=== PATIENT | male | born 1930 | race Caucasian/White ===

== ENCOUNTER 2018-01-11 22:37 | Inpatient (IN) | payer OTHER, BC ==
[2018-01-11] MEDS ORDERED: NS 1,000 ML IV ONE (22:43)
--- NOTE | 2018-01-11 22:47 | EDPHY ---
H & P Time Seen by Provider: 01/11/18 22:44 HPI/ROS: HPI CHIEF COMPLAINT: weakness, presyncope, lightheadedness, shortness of breath, nausea, vomiting HISTORY OF PRESENT ILLNESS: 87-year-old male, history of coronary artery disease, CABG, presents emergency room after he has been feeling unwell today. He states today is been globally weak for the past 24 hr. He has had associated nausea and vomited 2 times. Additionally reports lightheadedness. He is walking this evening to go use the bathroom in his private residence with his and had a patient syncopal episode. He got very lightheaded and had to go to the ground. He did not have a complete LOC. He denies any chest pain. Does complain of some mild shortness of breath. Additionally a cough. Additionally nausea vomiting, and global generalized weakness. Denies headache or head strike. Denies focal weakness numbness or tingling. EMS reports he had a room air saturation of 83%. Past Medical History: Coronary artery disease Past Surgical History: CABG Social History: Denies current use of drugs alcohol tobacco. Family History: Noncontributory ROS REVIEW OF SYSTEMS: 10 Systems were reviewed and negative with the exception of the elements mentioned in the history of present illness. Exam Constitutional elderly, frail, triage nursing summary reviewed, vital signs reviewed, awake/alert. Eyes normal conjunctivae and sclera, EOMI, PERRLA. HENT normal inspection, atraumatic, moist mucus membranes, no epistaxis, neck supple/ no meningismus, no raccoon eyes. Respiratory decreased breath sounds bilaterally clear to auscultation bilaterally, normal breath sounds, no respiratory distress, no wheezing. Cardiovascular rate normal, regular rhythm, no murmur, no edema, distal pulses normal. Gastrointestinal soft, non-tender, no rebound, no guarding, normal bowel sounds, no distension, no pulsatile mass. Genitourinary no CVA tenderness. Musculoskeletal right lower extremity is mildly red and warm, ecchymosis over the right knee where he states he got hit by a softball, no midline vertebral tenderness, full range of motion, no calf swelling, no tenderness of extremities , no meningismus, good pulses, neurovascularly intact. Skin pink, warm, & dry, no rash, skin atraumatic. Neurologic awake, alert and oriented x 3, AAOx3, moves all 4 extremities equally, motor intact, sensory intact, CN II-XII intact, normal cerebellar, normal vision, normal speech. Psychiatric normal mood/affect. Heme/Lymph/Immune no lymphadenopathy. Differential diagnosis includes but is not limited to: Syncope, dehydration, infection, sepsis, pneumonia ACS, atypical chest pain, pneumothorax, pneumonia, pulmonary embolism, aortic dissection, congestive heart failure, tumor, musculoskeletal pain, esophageal pain, GERD, peptic ulcer disease, pancreatitis Medical Decision Making: Plan for this patient IV establishment IV fluid bolus , chest x-ray, blood work, lactic acid, blood cultures, EKG, troponin, CT head without contrast Re-evaluation: EKG interpretation by me on record in [employer] system. Impression time of EKG 2244, sinus rhythm rate of 85 there is a bright bundle-branch block present without any signs of acute ischemia. Similar to previous EKG. CT scan head without contrast negative for acute bleed. Called to me by Dr. Lott. Chest x-ray reviewed. Pneumonia present. Please see radiologist's dictation. Blood cultures have been pulled. I have given him IV Levaquin 750 mg. Blood work is reviewed note evaluated white blood cell count, noted elevated lactic acid but trending down. No evidence of hypotension, tachycardia or fever. Given this 87-year-old complains of cough, generalized weakness, syncope, lightheadedness patient be admitted the hospital for pneumonia IV Levaquin. Source: Patient, EMS - Personal History Tetanus Vaccine Date: 2011 - Medical/Surgical History Hx Asthma: No Hx Chronic Respiratory Disease: No Hx Diabetes: No Hx Cardiac Disease: Yes Hx Renal Disease: No Hx Cirrhosis: No Hx Alcoholism: No Hx HIV/AIDS: No Hx Splenectomy or Spleen Trauma: No Other PMH: interstitial cystitis, GERD, gout, HTN, Hyperlipidemia, macular degeneration. bypass x 2 (1988 double and 1998 quadruple; stent in 2010. SDH 2011, tonsillectomy, prostate procedure, ortho surg: RT rotator cuff in 2007 - Social History Smoking Status: Never smoked Constitutional: Initial Vital Signs O2 Sat (%) 92 01/11/18 22:43 O2 Delivery Mode Nasal Cannula O2 (L/minute) 3 Allergies/Adverse Reactions: Penicillins Allergy (Mild, Verified 01/11/18 22:44) Rash bees Allergy (Severe, Uncoded 01/11/18 22:44) Anaphylaxis Home Medications: Medication Instructions Recorded Allopurinol [Allopurinol 300 MG 300 mg PO DAILY 01/12/18 (RX)] Amitriptyline HCl [Elavil 100 MG 100 mg PO HS 01/12/18 (*)] Aspirin EC [Aspirin EC 81 mg (*)] 81 mg PO DAILY 01/12/18 Atenolol [Tenormin 25 mg (*)] 12.5 mg PO DAILY 01/12/18 Cholecalciferol Vit D3 [Vitamin D3 1,000 units PO HS 01/12/18 (*)] Esomeprazole Mag Trihydrate 40 mg PO DAILY 01/12/18 [Nexium] Finasteride [Proscar 5 MG (*)] 5 mg PO HS 01/12/18 Folic Acid [Folic Acid 1 MG (*)] 1 mg PO BID 01/12/18 Herbals/Supplements -Info Only 1 ea PO DAILY 01/12/18 Magnesium Oxide [Magnesium Oxide 400 mg PO HS 01/12/18 400 mg (*)] Multivitamins [Multivitamin (*)] 1 each PO DAILY 01/12/18 [place]-3 Fatty Acids [Fish Oil 1000 1,000 mg PO DAILY 01/12/18 mg (*)] Pregabalin [Lyrica 100mg (*)] 100 mg PO TID 01/12/18 Rosuvastatin Calcium [Crestor 40mg 40 mg PO HS 01/12/18 (*)] Tamsulosin HCl [Flomax 0.4 MG (*)] 0.4 mg PO DAILY 01/12/18 Vit C/Dl-E AC/Lut/Copper/Znox 1 each PO BID 01/12/18 [Preservision Softgel] metFORMIN HCL [Glucophage 500 mg 500 mg PO BIDMEAL 01/12/18 (*)] oxyCODONE/APAP 5/325 [Percocet 1 - 2 tab PO Q4H PRN 01/12/18 5/325 (*)] tiZANidine HCL [Zanaflex] 4 mg PO TID 01/12/18 Medical Decision Making - Data Points Laboratory Results: Laboratory Results 01/11/18 22:40 01/11/18 22:40 Microbiology Results: MICROBIOLOGY 01/11/18 23:10 Blood Blood Culture - Preliminary 01/11/18 23:00 Blood Blood Culture - Preliminary Medications Given: Allopurinol (Allopurinol) 300 mg PO DAILY [facility] Stop: 07/12/18 08:59 Last Admin: 01/13/18 08:58 Dose: 300 mg Amitriptyline HCl (Elavil) 100 mg PO HS [facility] Stop: 07/11/18 20:59 Last Admin: 01/13/18 21:14 Dose: 100 mg Aspirin Buffered (Aspirin Ec) 81 mg PO DAILY [facility] Stop: 07/11/18 12:44 Last Admin: 01/13/18 08:58 Dose: 81 mg Atenolol (Tenormin) 12.5 mg PO DAILY [facility] Stop: 07/11/18 12:44 Last Admin: 01/13/18 08:58 Dose: 12.5 mg Cholecalciferol (Vitamin D) 1,000 units PO HS [facility] Stop: 07/11/18 20:59 Last Admin: 01/13/18 21:14 Dose: 1,000 units Enoxaparin Sodium (Lovenox) 40 mg SC DAILY [facility] Stop: 07/11/18 08:59 Last Admin: 01/13/18 08:59 Dose: 40 mg Finasteride (Proscar) 5 mg PO HS [facility] Stop: 07/11/18 20:59 Last Admin: 01/13/18 21:25 Dose: 5 mg Fluticasone Propionate (Flonase Nasal Stanley) 1 sprays EACHNARE DAILY [facility] Stop: 07/11/18 11:44 Last Admin: 01/13/18 09:07 Dose: 1 spray Folic Acid (Folic Acid) 1 mg PO BID [facility] Stop: 07/11/18 20:59 Last Admin: 01/13/18 21:15 Dose: 1 mg Sodium Chloride (Ns) 1,000 mls @ 75 mls/hr IV CONT [facility] Stop: 07/11/18 00:59 Last Admin: 01/13/18 21:14 Dose: 1,000 mls Levofloxacin (Levaquin) 750 mg PO DAILY10 [facility] Stop: 02/12/18 09:59 Last Admin: 01/13/18 10:30 Dose: 750 mg Magnesium Oxide (Magnesium Oxide) 400 mg PO HS [facility] Stop: 07/11/18 20:59 Last Admin: 01/13/18 21:15 Dose: 400 mg Metformin HCl (Glucophage) 500 mg PO BIDMEAL [facility] Stop: 07/11/18 17:59 Last Admin: 01/13/18 18:00 Dose: 500 mg Multivitamins (Tab-A-Marysol) 1 each PO DAILY [facility] Stop: 07/12/18 08:59 Last Admin: 01/13/18 08:59 Dose: 1 each Multivitamins/Minerals (Preservision Areds2 Formula) 1 each PO BID [facility] Stop: 07/11/18 20:59 Last Admin: 01/13/18 21:15 Dose: 1 each Inabf-0-Toej Ethyl Esters (Fish Oil) 1,000 mg PO DAILY [facility] Stop: 07/12/18 08:59 Last Admin: 01/13/18 08:58 Dose: 1,000 mg Pantoprazole Sodium (Protonix) 40 mg PO DAILY [facility] Stop: 07/11/18 13:44 Last Admin: 01/13/18 08:58 Dose: 40 mg Pregabalin (Lyrica) 100 mg PO TID [facility] Stop: 07/11/18 15:59 Last Admin: 01/13/18 21:15 Dose: 100 mg Rosuvastatin Calcium (Crestor) 40 mg PO HS [facility] Stop: 07/11/18 20:59 Last Admin: 01/13/18 21:14 Dose: 40 mg Tamsulosin HCl (Flomax) 0.4 mg PO DAILY [facility] Stop: 07/12/18 08:59 Last Admin: 01/13/18 08:58 Dose: 0.4 mg Tizanidine HCl (Zanaflex) 4 mg PO TID [facility] Stop: 07/11/18 15:59 Last Admin: 01/13/18 21:15 Dose: 4 mg Discontinued Medications Sodium Chloride (Ns) 1,000 mls @ 0 mls/hr IV EDNOW ONE; Wide Open PRN Reason: Protocol Stop: 01/11/18 22:44 Last Admin: 01/11/18 22:58 Dose: 1,000 mls Levofloxacin/Dextrose (Levaquin 750 Mg (Premix)) 150 mls @ 100 mls/hr IV EDNOW ONE PRN Reason: Protocol Stop: 01/12/18 02:07 Last Admin: 01/12/18 00:43 Dose: 150 mls Sodium Chloride (Ns) 200 mls @ 200 mls/hr IV ONCE ONE Stop: 01/13/18 14:06 Last Admin: 01/13/18 13:15 Dose: 200 mls Lidocaine HCl (Xylocaine-Mpf 1% Sdv) 20 ml NB ONCE ONE Stop: 01/14/18 03:01 Last Admin: 01/14/18 03:32 Dose: Not Given Point of Care Test Results: Chemistry 01/11/18 22:47 POC Troponin I 0.00 ng/mL ng/mL (0.00-0.08) Departure - Departure Disposition: [facility] [place] [facility] Acute Clinical Impression: Dehydration Syncope Qualifiers: Syncope type: unspecified Qualified Code(s): R55 - Syncope and collapse Pneumonia Qualifiers: Pneumonia type: due to unspecified organism Laterality: bilateral Lung location : lower lobe of lung Qualified Code(s): J18.1 - Lobar pneumonia, unspecified organism Condition: Fair
[2018-01-11 22:53] LABS: PLATELET COUNT 164 10^3/uL (150-400)
[2018-01-11 23:01] LABS: INR 1.11 (0.83-1.16); PROTIME(PATIENT) 14.5 SEC (12.0-15.0)
[2018-01-12] MEDS ORDERED: ACETAMINOPHEN 325 MG TAB PO PRN (00:57)
[2018-01-12] MEDS ORDERED: ONDANSETRON 4 MG/2 ML VIAL IVP PRN (00:57)
[2018-01-12] MEDS: NS 1,000 ML IV SCH ×2 (02:10→18:16)
--- NOTE | 2018-01-12 04:19 | GHP ---
DATE OF ADMISSION: 01/12/2018 SOURCE: Patient provides history, appears reliable. EMR was reviewed and case discussed with ED pro vider. CHIEF COMPLAINT: Generalized weakness, nausea, vomiting, shortness of breath. HISTORY OF PRESENT ILLNESS: This is a very pleasant 87-year-old gentleman with past medical history significant for HTN, HLD, CAD status post CABG 4 vessel x2 in 1988 and 1998, followed by stenting in 2010, BPH, interstitial cystitis, who presents to the emergency department today following a presynco pal episode. The patient reports that over the last several days, he has been having increasing gene ralized weakness and fatigue. Today, he had 2 episodes of nausea and vomiting. He has also been exp eriencing some lightheadedness as well as shortness of breath and coughing. The patient reports that he had his grandkids over for the past week and he has subsequently contracted cold-type symptoms wi th runny nose, sore throat and congestion, which have been slowly improving. The patient states toda y he was going to the bathroom when he became significantly lightheaded coming back. He did denies a ny loss of consciousness, but states that he was too weak to stand and helped himself down to the ameya or. The patient getting up states that he may have stumbled and possibly hit his head. He is not on any therapeutic anticoagulation, but he does take a daily baby aspirin. The patient denies any head ache. No numbness, tingling. No focal deficits, just generalized malaise and weakness. He does rep ort he has had fevers and chills over the last several days. He has been experiencing some myalgias as well. EMS was called and arrived noting that patient had an O2 saturation at 83% on room air on s cene. It did improve with supplemental oxygen. REVIEW OF SYSTEMS: Positive for fevers, chills. SKIN: No rashes or sores. EYES: Patient denies a ny acute changes in vision or ocular pain. ENT: Patient reports symptoms as noted per HPI. CV: No chest pain, palpitations. RESPIRATORY: Shortness of breath and nonproductive cough as noted above. : Patient with history of interstitial cystitis that has been relatively controlled with Lyrica and tizanidine. However, in the last several days, patient has reported some increasing dysuria with out any hematuria. GI: Patient with nausea, vomiting x2 as noted per HPI. No hematemesis. Denies any diarrhea. No melena or hematochezia. MUSCULOSKELETAL: Patient reports diffuse myalgias and gen eralized weakness as noted above. NEURO: Patient without any numbness, tingling, or focal weakness. He does report generalized weakness and unable to stand walking back from the bathroom as noted abo ve. Remainder of 10 point review of systems is negative except as noted above. ALLERGIES: To penicillin and bee stings. HOME MEDICATIONS: As available per EMR, tizanidine 4 mg p.o. t.i.d., Percocet 5/325 1-2 tabs p.o. q. 4 hours p.r.n., hydroxyzine 50 mg p.o. at HS, amlodipine 2.5 mg p.o. daily, PreserVision ARED tablet 1 tab p.o. twice daily, tamsulosin 0.4 mg p.o. daily, Crestor 40 mg p.o. daily in the evening, Lyrica 100 mg p.o. three times daily, fish oil 1000 mg p.o. daily, vitamin tab 1 tab p.o. daily, Citrucel 1 000 mg p.o. daily, magnesium oxide 400 mg p.o. at HS, folic acid 0.6 mg p.o. b.i.d., finasteride 5 mg p.o. at HS, Nexium 40 mg p.o. daily, vitamin D3 1000 units p.o. at HS, atenolol 12.5 mg p.o. daily, aspirin 81 mg p.o. daily, amitriptyline 25 mg p.o. at HS, allopurinol 300 mg p.o. daily. PAST MEDICAL HISTORY: HTN, HLD, CAD status post CABG x4 vessel in 1988, 1998, as well as cardiac cat h with stenting in 2010, BPH, gout, SDH in 2011, interstitial cystitis, right foot cellulitis, GERD, macular degeneration. PAST SURGICAL HISTORY: Tonsillectomy, adenoidectomy, prostate, CABG x2, cardiac cath with stents, ri ght rotator cuff repair. FAMILY HISTORY: Negative for CAD or lung disease. The patient reports his children are all healthy. SOCIAL HISTORY: Patient is , lives with his in a private home. He does not smoke or use any illicit drugs or marijuana. He drinks possibly 1 beer per week. CODE STATUS: Full. Patient's MD TITA is . PHYSICAL EXAM: VITAL SIGNS: Blood pressure 113/63, heart rate is 85, respiratory rate 18, O2 satura tion 92% on 3 L with a temperature 37.1. Current vitals available: Blood pressure is 107/65, heart rate is 84, respiratory rate 24, O2 saturation is 93% on 2 L by nasal cannula, temperature 37.4. GEN ERAL: No acute distress. Very pleasant, elderly, frail-appearing gentleman is lying quietly in bed. Does appear quite fatigued, acutely ill but nontoxic. HEAD: Normocephalic, atraumatic. EYES: Ex traocular muscles are intact. Pupils equal, round, react to light bilaterally and symmetric. No scl eral icterus, conjunctival injection. Lens reflexes appreciated bilaterally. ENT: Mucous membranes appear quite dry. Minimal amount of oropharyngeal erythema, but no exudates are appreciated. No na marisol discharge. Patient has nasal cannula in place. NECK: Supple. Trachea midline. CV: Regular r ate and rhythm. No murmurs, rubs, or gallops appreciated. RESPIRATORY: Unlabored breathing except when patient goes to sit up. He does have some minimal increased work of breathing temporarily. Dwayne g sounds diminished at the bases with occasional crackles bilaterally. No wheezes or rhonchi appreci ated. ABDOMEN: Obese, soft, nontender to palpation. No rebound, guarding, or masses appreciated. : No suprapubic tenderness to palpation. No Rudd catheter in place. EXTREMITIES: Patient with some trace pretibial pitting edema down to his feet. He has 1+ pedal pulses appreciated bilaterally and symmetric. MUSCULOSKELETAL: Overall, patient's strength is fair. He is able to sit up independ ently but does appear fatigued. Exam is limited at this time. NEURO: Grossly nonfocal. Moves all extremities. Strength 4-5 out of 5 in upper and lower extremities as noted above. PSYCH: Thought p rocess, content and questions are all appropriate. Patient is fatigued overall, but he is still plea nicole and very cooperative. LABORATORY STUDIES: WBC 14.97, H and H 14.0 and 41.5, MCV 91.2, platelet count is 164, neutrophil pe rcent 84.9%, no bands. PT is 14.5, INR is 1.11, PTT is 28.6. VBG lactic acid initially is 2.2, repe ated is 2.0. Sodium is 137, potassium 4.4, chloride 100, CO2 25, anion gap 12, BUN 26, creatinine is 1.2, GFR 58, glucose is 131, calcium 9.4, magnesium 1.8, total bilirubin 0.5, ALT is 29, AST is 22, alkaline phosphatase is 99. Troponin is negative. BTNP is 171. Total protein 6.3, albumin 3.8, lip ase is 35. Chest x-ray: Image and report reviewed. Mild bronchitis, mild atelectasis versus scarring versus ea rly infiltrates both lung bases. CT head without contrast: Image and report were reviewed. Negativ e for any evidence acute intracranial abnormality. Acute on chronic sinus related change in both fro ntal sinuses and left maxillary sinus. Mucous membrane thickening in the paranasal sinuses as well. EKG was reviewed myself showing normal sinus rhythm in the 80s with a right bundle branch block. QTc 468. ASSESSMENT/PLAN: Pleasant 87-year-old gentleman with significant cardiac history, who [facility] today with complaints of generalized weakness, shortness of breath, nausea, vo miting, lightheadedness. 1. Bilateral pneumonia. The patient had preceding viral type symptoms and positive sick contacts. He has been started on Levaquin which will continue. The patient also with some noted hypoxia and re quiring supplemental oxygen. 2. Hypoxia due to above. Continue to titrate down O2 to maintain sats greater than 90. Antibiotics as noted above. Incentive spirometry. 3. Presyncope. Likely related to patient's hypoxia and/or possibly orthostasis given patient does a ppear dehydrated. Patient's blood pressures have been adequate at this time and his O2 level has imp roved with supplementation. Will monitor patient closely and fall precautions will be in place. 4. Leukocytosis with elevated lactate and some minimal acute kidney injury, qualifying patient for s epsis, but rapidly improving with IV fluids and antibiotics. Will continue to trend lactate to less than 2.0. Antibiotics as noted above. Blood cultures are pending x2. 5. Dysuria. Patient with history of interstitial cystitis, but he reports abrupt change in symptoms recently that were previously well controlled. Will obtain a urinalysis to verify that there is no evidence of urinary tract infection. 6. Generalized weakness. IV fluids, antibiotics, oxygen supplementation as noted above. PT/OT cons ultation. 7. Hyperglycemia. No previous history of diabetes. This is nonfasting, so will plan to monitor and will allow for some permissive hyperglycemia as patient does not have a history of diabetes previous ly. CHRONIC MEDICAL ISSUES: 1. Coronary artery disease without any known history of chest pain. Resume patient's statin therapy and antihypertensives. 2. Hyperlipidemia. Patient will continue statin. 3. Benign essential hypertension. Continue patient's amlodipine, atenolol. 4. Benign prostatic hypertrophy. Continue patient's Flomax and finasteride. 5. Interstitial cystitis. Plan as noted above and then resume patient's Lyrica and tizanidine. 6. Gout. Continue allopurinol. 7. Macular degeneration. Resume patient's supplementation if he should stay additional days. 8. Fluid, electrolyte, nutrition. Will give patient some supplemental oxygen. He denies any histor y of congestive heart failure based on his previous echocardiogram. Patient does have some lower ext remity edema, but no signs or symptoms of congestive heart failure at this time. Will monitor patien t's fluid status closely, but does currently appeared quite dehydrated. 9. Electrolytes are adequate and do not require replacement. A cardiac diet ordered. 10. Prophylaxis. Sequential compression devices and Lovenox if patient should stay additional day. 11. Code status is full. Patient's is MD RIVERS. 12. Disposition. Patient admitted to observation status on the medical floor at this time pending r eassessment of his oxygen needs in the morning and overall stability. /[id number]/MODL
[2018-01-12] MEDS: ENOXAPARIN 40 MG/0.4 ML SYR SC SCH (10:42)
--- NOTE | 2018-01-12 10:44 | HOSPPROG ---
Hospitalist Progress Note Assessment/Plan: Mr Jiménez is an 87-year-old gentleman who presents to the emergency department with complaints of generalized weakness, shortness of breath, nausea, vomiting , lightheadedness. An x ray was performed which showed a bilateral pna. Today is my first encounter w the patient, chart reviewed. *pna/ cap -levaquin -blood cx pending *hypoxia -due to this *presyncope -no c/o of this *leukocytosis w elevated lactate due to the above *Generalized weakness -PT and OT to see *hyperglycemia *CAD -statin, beta linda -hx of CABG twice *dysuria -hx of interstitial cystitis *Plan: will re-evaluate later today, recheck cbc Subjective: Dixon said he is feeling much better today. Objective: Vital Signs Temp Pulse Resp BP Pulse Ox 37.2 C 69 18 120/65 94 01/12/18 08:00 01/12/18 08:00 01/12/18 08:00 01/12/18 08:00 01/12/18 08:00 Laboratory Results 01/12/18 04:43 01/11/18 01/12/18 01/13/18 05:59 05:59 05:59 Intake Total 100 Output Total 350 Balance -250 PT 14.5 SEC (12.0-15.0) 01/11/18 22:40 INR 1.11 (0.83-1.16) 01/11/18 22:40 - Physical Exam Constitutional: no apparent distress, appears nourished, not in pain Eyes: PERRL Ears, Nose, Mouth, Throat: hearing normal Cardiovascular: regular rate and rhythym Respiratory: no respiratory distress, reduced air movement Gastrointestinal: normoactive bowel sounds Skin: warm Musculoskeletal: full muscle strength Neurologic: AAOx3 Psychiatric: interacting appropriately ICD10 Worksheet Patient Problems: Problems Problem Status Onset Dehydration Acute Pneumonia Acute Syncope 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
--- NOTE | 2018-01-12 11:06 | CPEKG ---
Test Reason : OPEN Blood Pressure : / mmHG Vent. Rate : 085 BPM Atrial Rate : 086 BPM P-R Int : 186 ms QRS Dur : 171 ms QT Int : 393 ms P-R-T Axes : 033 267 029 degrees QTc Int : 468 ms Sinus rhythm Right bundle branch block Confirmed by Antonio Arias ([id number]) on 01/12/2018 11:05:50 AM Referred By: Confirmed By:Antonio Arias
[2018-01-12] MEDS: FLUTICASONE NASAL 120 SPRAYS/16 GM MDI EACHNARE SCH (12:56)
[2018-01-12 13:13] LABS: PLATELET COUNT 142 10^3/uL (150-400)
--- NOTE | 2018-01-12 13:57 | ASMTCMCOM ---
CM Note CM Note Notes: Case Management Chart Review for Discharge Support: Patient is a 87 y/o male with weakness/not feeling well with history of coronary artery disease, CABG, admitted under observation via [facility] for pneumonia. CM met with patient when it seemed he was to be discharged, he will stay another night for monitoring (elevated respiratory rate). He states his will be support at home and will be here to transport him. Patient declines any CM needs. Patient states he will try to schedule a follow up with Primary Care( Dr. Seals) within the week. CM delivered IM and patient signed for receipt. CM to follow. Discharge plan: discharge home independently, date TBD. Date Signed: 01/12/2018 01:56 PM Electronically Signed By:Kendy Workman
[2018-01-12] MEDS: ATENOLOL 25 MG TAB PO SCH (14:18)
[2018-01-12] MEDS: PANTOPRAZOLE SODIUM 40 MG TAB PO SCH (14:18)
[2018-01-12] MEDS: ASPIRIN EC 81 MG TAB PO SCH (14:18)
[2018-01-12] MEDS: PREGABALIN 100 MG CAP PO SCH ×2 (14:18→23:34)
[2018-01-12] MEDS: metFORMIN HCL 500 MG TAB PO SCH (18:13)
[2018-01-12] MEDS: AMITRIPTYLINE HCL 100 MG TAB PO SCH (23:33)
[2018-01-12] MEDS: PRESERVISION AREDS2 FORMULA EYE VIT 1 EACH PO SCH (23:33)
[2018-01-12] MEDS: CHOLECALCIFEROL VIT D3 1,000 UNITS TAB PO SCH (23:33)
[2018-01-12] MEDS: FINASTERIDE 5 MG TAB PO SCH (23:34)
[2018-01-12] MEDS: FOLIC ACID 1 MG TAB PO SCH (23:34)
[2018-01-12] MEDS: MAGNESIUM OXIDE 400 MG TAB PO SCH (23:34)
[2018-01-12] MEDS: ROSUVASTATIN CALCIUM 40 MG TAB PO SCH (23:34)
[2018-01-13] MEDS ORDERED: levOFLOXACIN 500 MG/DEXTROSE 100 ML IV SCH (00:30)
[2018-01-13 05:43] LABS: PLATELET COUNT 147 10^3/uL (150-400)
[2018-01-13] MEDS: PRESERVISION AREDS2 FORMULA EYE VIT 1 EACH PO SCH ×2 (08:57→21:15)
[2018-01-13] MEDS: PANTOPRAZOLE SODIUM 40 MG TAB PO SCH (08:58)
[2018-01-13] MEDS: PREGABALIN 100 MG CAP PO SCH ×3 (08:58→21:15)
[2018-01-13] MEDS: TAMSULOSIN HCL 0.4 MG CAP PO SCH (08:58)
[2018-01-13] MEDS: FOLIC ACID 1 MG TAB PO SCH ×2 (08:58→21:15)
[2018-01-13] MEDS: ASPIRIN EC 81 MG TAB PO SCH (08:58)
[2018-01-13] MEDS: ATENOLOL 25 MG TAB PO SCH (08:58)
[2018-01-13] MEDS: ALLOPURINOL 300 MG TAB PO SCH (08:58)
[2018-01-13] MEDS: OMEGA-3 FATTY ACIDS 1,000 MG CAP PO SCH (08:58)
[2018-01-13] MEDS: MULTIVITAMINS 1 EACH TAB PO SCH (08:59)
[2018-01-13] MEDS: metFORMIN HCL 500 MG TAB PO SCH ×2 (08:59→18:00)
[2018-01-13] MEDS: ENOXAPARIN 40 MG/0.4 ML SYR SC SCH (08:59)
[2018-01-13] MEDS ORDERED: Herbals/Supplements -Info Only PO SCH (09:00)
[2018-01-13] MEDS: FLUTICASONE NASAL 120 SPRAYS/16 GM MDI EACHNARE SCH (09:07)
[2018-01-13] MEDS: NS 1,000 ML IV SCH ×2 (09:11→21:14)
[2018-01-13] MEDS ORDERED: NS 200 ML IV ONE (13:07)
--- NOTE | 2018-01-13 15:36 | HOSPPROG ---
Hospitalist Progress Note Assessment/Plan: Mr Jiménez is an 87-year-old gentleman who presents to the emergency department with complaints of generalized weakness, shortness of breath, nausea, vomiting , lightheadedness. An x ray was performed which showed a bilateral pna. *pna/ cap -levaquin -blood cx show no growth *hypoxia -resolved *presyncope -no c/o of this but suspect this is from low blood pressure at home *hypotension w bradycardia -bp has been low throughout the day, given fluid bolus -with his cardiac hx will get an echo to further evaluate LV function *leukocytosis w elevated lactate due to pna -resolving *Generalized weakness -PT and OT to see *hyperglycemia *CAD -statin, beta linda -hx of CABG twice *dysuria -hx of interstitial cystitis -is on Lyrica and Zanaflex for this ( says if held he has symptoms) *Plan: will hold Atenolol, fluid bolus, get an echo today or tomorrow Subjective: Dixon has no complaints, feeling better. Objective: Vital Signs Temp Pulse Resp BP Pulse Ox 36.6 C 52 L 16 110/64 94 01/13/18 11:32 01/13/18 12:42 01/13/18 12:42 01/13/18 14:01 01/13/18 12:42 Laboratory Results 01/13/18 04:55 01/12/18 04:43 01/12/18 01/13/18 01/14/18 05:59 05:59 05:59 Intake Total 100 1731 479 Output Total 350 1150 Balance -250 581 479 PT 14.5 SEC (12.0-15.0) 01/11/18 22:40 INR 1.11 (0.83-1.16) 01/11/18 22:40 - Physical Exam Constitutional: appears nourished, not in pain Eyes: PERRL Ears, Nose, Mouth, Throat: hearing normal Cardiovascular: regular rate and rhythym Respiratory: no respiratory distress, rhonchi (bibasilar) Gastrointestinal: normoactive bowel sounds Skin: warm Musculoskeletal: generalized weakness Neurologic: AAOx3 Psychiatric: interacting appropriately ICD10 Worksheet Patient Problems: Problems Problem Status Onset Dehydration Acute Pneumonia Acute Syncope 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
[2018-01-13] MEDS: ROSUVASTATIN CALCIUM 40 MG TAB PO SCH (21:14)
[2018-01-13] MEDS: AMITRIPTYLINE HCL 100 MG TAB PO SCH (21:14)
[2018-01-13] MEDS: CHOLECALCIFEROL VIT D3 1,000 UNITS TAB PO SCH (21:14)
[2018-01-13] MEDS: MAGNESIUM OXIDE 400 MG TAB PO SCH (21:15)
[2018-01-13] MEDS: FINASTERIDE 5 MG TAB PO SCH (21:25)
[2018-01-14] MEDS ORDERED: LIDOCAINE 1% 5 ML SDV NB ONE (03:00)
[2018-01-14] MEDS: ENOXAPARIN 40 MG/0.4 ML SYR SC SCH (08:30)
[2018-01-14] MEDS: OMEGA-3 FATTY ACIDS 1,000 MG CAP PO SCH (08:30)
[2018-01-14] MEDS: ASPIRIN EC 81 MG TAB PO SCH (08:30)
[2018-01-14] MEDS: TAMSULOSIN HCL 0.4 MG CAP PO SCH (08:30)
[2018-01-14] MEDS: PREGABALIN 100 MG CAP PO SCH (08:30)
[2018-01-14] MEDS: metFORMIN HCL 500 MG TAB PO SCH (08:30)
[2018-01-14] MEDS: ALLOPURINOL 300 MG TAB PO SCH (08:30)
[2018-01-14] MEDS: FOLIC ACID 1 MG TAB PO SCH (08:30)
[2018-01-14] MEDS: MULTIVITAMINS 1 EACH TAB PO SCH (08:30)
[2018-01-14] MEDS: PRESERVISION AREDS2 FORMULA EYE VIT 1 EACH PO SCH (08:30)
[2018-01-14] MEDS: PANTOPRAZOLE SODIUM 40 MG TAB PO SCH (08:31)
[2018-01-14] MEDS: FLUTICASONE NASAL 120 SPRAYS/16 GM MDI EACHNARE SCH (08:31)
--- NOTE | 2018-01-14 09:04 | PDMN ---
Medical Necessity Medical necessity: Change to IP, as of 01/12/18, per [facility] & MCG M-282; los >2 mn for ongoing management of community acquired pneumonia w/tachypnea (RR 24), leukocytosis w/elevated lactate & generalized weakness w/recent falls; requiring further monitoring, IV abx, IVFs & therapies; comorbid advanced age, HTN, CAD, CABG
--- NOTE | 2018-01-14 09:16 | CPEKG ---
Test Reason : OPEN Blood Pressure : / mmHG Vent. Rate : 049 BPM Atrial Rate : 050 BPM P-R Int : 194 ms QRS Dur : 131 ms QT Int : 476 ms P-R-T Axes : 008 -43 000 degrees QTc Int : 430 ms Sinus bradycardia Right bundle branch block Confirmed by Kentrell Lowery ([id number]) on 01/14/2018 9:16:15 AM Referred By: Confirmed By:Kentrell Lowery
[2018-01-14 11:12] VITALS: BP 104/64
--- NOTE | 2018-01-14 11:13 | ECHO ---
[email or web address] [address] [address] Main: [phone] Fax: Transthoracic Echocardiogram Name: TERRI HULL MR#: [id number] Study Date: 01/14/2018 Study Time: 09:29 AM Date of : 1930 Age: 87 year(s) Height: 177.8 cm (70 in.) Weight: 83.92 kg (185 lb.) BSA: 2.02 m2 Gender: Male Examination: Echo Indication: Hypotension/falling/hx of CABG x 2 Image Quality: Contrast: Requested by: Liane Cavanaugh BP: 133 mmHg/76 mmHg Heart Rate: Rhythm: Indication: Hypotension/falling/hx of CABG x 2 Procedure Staff Patient Access Associate: Monse Heaton RDCS Reading Physician: Chaz Chan MD Requesting Provider: Conclusions: no pericardial effusion. Concentric left ventricular hypertrophy. Ejection fraction 65%. Left atrial enlargement with mild mitral regurgitation. Thickening of the aortic valve without significant insufficiency or stenosis. Measurements: Chambers Valvular Assessment AV/MV Valvular Assessment TV/PV Normal Normal Normal Name Value Range Name Value Range Name Value Range Ao Beverly (MM): 3.8 cm (2.2 cm-3.7 AV Vmax: 1.54 m/s (1 m/s-1.7 TR Vmax: 2.05 mm/s ( - ) cm) m/s) TR PGmax: 17 mmHg ( - ) IVSd (2D): 0.8 cm (0.6 cm-1.1 AV meanP mmHg ( - ) syst. PAP: 22 mmHg ( - ) cm) MV E Vmax: 0.95 m/s ( - ) LVDd (2D): 5.5 cm (4.2 cm-5.9 MV A Vmax: 0.81 m/s ( - ) cm) MV E/A: 1.17 ( - ) LVDs (2D): 3.4 cm (2.1 cm-4 cm) LVPWd (2D): 0.6 cm (0.6 cm-1 cm) LVEF (MOD4): 74 % (>=55 %) EF Range: 60-65 % Continued Measurements: Chambers Valvular Assessment AV/MV Valvular Assessment TV/PV Name Value Name Value Name Value LADs: 4.5 cm MV E' Septal: 0.08 m/s CVP (est.): 5 mmHg LADs Lon.9 cm MV E/E' Septal: 11.80 LA Area: 29.6 cm2 MV E/E' Lateral: 12.90 LA Volume: 102 ml LA Volume Index: 50.5 ml/m2 Patient: TERRI HULL Study Date: 01/14/2018 Page 1 of 2 09:29 AM Findings: Left Ventricle: Normal size left ventricle. Mild concentric LV hypertrophy. Normal global systolic LV function. The ejection fraction is estimated to be 60-65 %. No regional wall motion abnormality. Normal diastolic LV function. Right Ventricle: Normal size right ventricle. There is a moderator band noted in the right ventricle. Left Atrium: The left atrium is mildly to moderately dilated. Right Atrium: The right atrium is normal in size. Mitral Valve: The mitral valve is normal in appearance and function. Trivial to mild mitral regurgitation. Aortic Valve: The aortic valve is tri-leaflet. There is mild thickening of the NCC of the aortic valve.. Tricuspid Valve: The tricuspid valve is normal in appearance and function. Mild tricuspid regurgitation is present. Pulmonic Valve: The pulmonic valve is normal in appearance and function. Aorta: The aorta is normal. Pericardium: No pericardial effusion. (No Signature Object) Patient: TERRI HULL Study Date: 01/14/2018 Page 2 of 2 09:29 AM [id number]
--- NOTE | 2018-01-14 15:49 | GDS ---
DISCHARGE DIAGNOSES: 1. Community-acquired pneumonia. 2. Acute hypoxemic respiratory failure. 3. Presyncope. 4. Hypotension with bradycardia. 5. Leukocytosis with elevated lactate. 6. Generalized weakness. 7. Hyperglycemia. 8. Coronary artery disease. 9. Dysuria. STUDIES AND PROCEDURES DONE: CT of the head. PHYSICAL EXAM: GENERAL: The patient is alert. VITAL SIGNS: Afebrile at 36.4, pulse is 61, respira tory rate 16, blood pressure is 104/64, saturating 94% on room air. I have seen and evaluated the ginger black on the day of discharge. HOSPITAL COURSE: The patient is an 87-year-old male who presented to the emergency room with complai nts of generalized weakness. He was evaluated and diagnosed with: 1. Community-acquired pneumonia. During this hospitalization, he was treated with Levaquin. He has been transitioned to doxycycline for the outpatient setting given his age, as well as interfering me dications. 2. Acute hypoxemic respiratory failure. This has resolved in the setting of community-acquired pneu monia. 3. Presyncope. This is secondary to the patient's acute infectious process and has not recurred. 4. Hypotension with bradycardia. His atenolol has been held during this hospitalization. Echocardi ogram was performed with normal ejection fraction. I recommend he follow up with his primary cardiol ogist, Dr. Chaz Chan for further medication recommendations. 5. Leukocytosis. This has resolved in the setting of pneumonia. 6. Generalized weakness. He has been evaluated by Physical Therapy and Occupational Therapy and is stable. 7. Dysuria. The patient has a history of interstitial cystitis. His home medications of Lyrica and Zanaflex have been continued at the time of disposition. DISPOSITION: He will be discharged home with his . There are no pending studies. He feels sign ificantly better. FOLLOWUP: Followup will be with Dr. Chaz Chan, his primary provider relations consultant as well as his primary care physician, Dr. Jules Ayala. DISCHARGE MEDICATIONS: Please refer to EMR form. The patient's new medication includes doxycycline and his atenolol have been discontinued. I have spent greater than 35 minutes in the care, coordination, and management this patient's disposi tion. /[id number]/MODL
== END 2018-01-14 15:17 | disposition home or self-care (01) | DRG 193 ==
LOC: EDUNIT# → F3E 01-12 01:33 → OBSVTOIN 01-12 13:42
PROVIDERS: ADMIT Family Medicine; ATTEND Family Medicine
DX: J18.9 Pneumonia, unspecified organism (principal); J96.01 Acute respiratory failure with hypoxia; R55 Syncope and collapse; I95.9 Hypotension, unspecified; R00.1 Bradycardia, unspecified; R73.9 Hyperglycemia, unspecified; I25.10 Atherosclerotic heart disease of native coronary artery without angina pectoris; R30.0 Dysuria; N30.10 Interstitial cystitis (chronic) without hematuria; K21.9 Gastro-esophageal reflux disease without esophagitis; M10.9 Gout, unspecified; I10 Essential (primary) hypertension; E78.5 Hyperlipidemia, unspecified; H35.30 Unspecified macular degeneration; E86.9 Volume depletion, unspecified; Z95.1 Presence of aortocoronary bypass graft
CPT/HCPCS: 84484-PO; 96365; 97110-GP; 97116-GP; 97161-GP; 97165-GO; 97530-GO; 97535-GO; G8978-GP-CJ; G8979-GP-CI; G8987-GO-CJ; G8988-GO-CI; J1650; J1956

== ENCOUNTER → 2018-01-17 | Outpatient (CLI) | payer OTHER, BC | LOC: FIMAGING 12:54 | PROVIDERS: ATTEND Internal Medicine | DX: J40 Bronchitis, not specified as acute or chronic (principal); R60.9 Edema, unspecified ==